=== PATIENT | female | born 1945 | race Caucasian/White ===

== ENCOUNTER 2017-05-30 19:14 | Emergency (ER) | payer OTHER ==
[~2017-05-30] VITALS: Ht 149.9 cm; Wt 74.4 kg
[~2017-05-30 19:14] MED LIST: ATORVASTATIN CA40 M1 PO; CLEOCIN HCL300 MG PO; COUMADIN5 MG PO; FOL1 PO; GABAPENTIN100 M2 PO; GABAPENTIN300 M3 PO; GLU500 PO; LAC PO; LOT5 PO; SYN75 PO; ZESTRIL20 MG PO
[2017-05-30 19:21] VITALS: BP 148/85; Ht 149.9 cm; Wt 74.4 kg
== END 2017-05-30 23:10 | disposition left against medical advice (07) ==
LOC: ED 19:14
DX: Z53.21 Procedure and treatment not carried out due to patient leaving prior to being seen by health care provider (principal)

== ENCOUNTER 2019-05-03 14:07 | Emergency (ER) | payer OTHER ==
[~2019-05-03] VITALS: Ht 157.5 cm; Wt 66.7 kg
[~2019-05-03 14:07] MED LIST changes: +BD LACTINEX1.4 MG PO; +BENAZEPRIL HCL/1 TAB PO; +BENAZEPRIL HYDR20 M1 PO; +CLINDAMYCIN HC300 MG PO; +HYDROCHLOROTH12.5 M2 PO; +LEVO-T75 MCG PO; +LIPITOR40 MG PO; +LOTENSIN HCT1 TA2 PO; +METFORMIN500 M1 PO; +TYLENOL EXTRA500 M3 PO; +[UNRECOGNIZED DRUG - SUPPLY] MC
[2019-05-03 14:41] VITALS: Ht 157.5 cm; Wt 66.7 kg
[2019-05-03 16:57] LABS: BASOPHIL % 0.3 % (0-2); PLATELET COUNT 373 x10^3mcL (130-400); RED CELL DISTRIBUTION WIDTH 14.5 % (11.5-14.5)
[2019-05-03 17:09] LABS: CALCIUM 9.3 mg/dL (8.5-10.1); CHLORIDE SERUM 106 mmol/L (98-107); CREATININE SERUM 1.1 mg/dL (0.6-1.0); GLUCOSE SERUM 94 mg/dL (74-106); POTASSIUM SERUM 3.8 mmol/L (3.5-5.1); SODIUM SERUM 141 mmol/L (136-145)
[2019-05-03 17:14] LABS: ALBUMIN 3.4 g/dL (3.4-5.0); ALKALINE PHOSPHATASE 84 U/L (46-116); ALT/SGPT 24 U/L (14-59); AST/SGOT 20 U/L (15-37); BILIRUBIN TOTAL 0.4 mg/dL (0.20-1.00)
[2019-05-03] MEDS ORDERED: LOTENSIN20 MG PO (18:04)
[2019-05-03] MEDS ORDERED: ATORVASTATIN CA40 M1 PO (18:04)
[2019-05-03] MEDS ORDERED: BENAZEPRIL HCL-1 TA1 PO (18:05)
[2019-05-03] MEDS ORDERED: CEFDINIR300 M1 PO (18:05)
[2019-05-03] MEDS ORDERED: MICROZIDE12.5 MG PO (18:06)
[2019-05-03] MEDS ORDERED: TIROSINT88 MC1 PO (18:06)
[2019-05-03] MEDS ORDERED: KEFLEX500 M1 PO (18:06)
[2019-05-03] MEDS ORDERED: FORTAMET500 M1 PO (18:07)
[2019-05-03 21:54] VITALS: BP 120/73
== END 2019-05-03 21:54 | disposition short-term general hospital (02) ==
LOC: ED 14:07
PROVIDERS: Emergency Medicine
DX: L03.113 Cellulitis of right upper limb (principal); I10 Essential (primary) hypertension; E11.9 Type 2 diabetes mellitus without complications; Z88.8 Allergy status to other drugs, medicaments and biological substances; Z85.3 Personal history of malignant neoplasm of breast
CPT/HCPCS: J0690; Q0092